=== PATIENT | female | born 1945 | race Caucasian/White ===

== ENCOUNTER → 2016-04-29 | Outpatient (CLI) | payer MEDICARE ==
[~2016-04-29] MED LIST: ACET325T38 PO; ASPI-860 PO; CALC1TAB PO; CHOL100061 PO; CMBV14.7IN INH; CYAN10006 PO; FLC1T PO; FRSM20T PO; GLIP5TAB13 PO; IRON45TA2 PO; LEVO25TA42 PO; LEVO750T39 PO; LORA10TA44 PO; LOSA1TAB19; METF500T4 PO; POTA25TA4 PO; PRAV40TA2 PO; RANI150T15 PO
--- NOTE | 2016-04-29 19:53 | Diagnostic Imaging Report ---
DIGITAL MAMMO RT DIAG W/CAD Comparison: 11/14/2015, 11/01/2015 and 10/23/2015 Indication: Followup right breast calcifications status post stereotactic biopsy Technique: Digital diagnostic mammography of the right breast was obtained with a computer-aided detection (CAD) system. Findings: There are scattered fibroglandular densities in the right breast. The stereotactic biopsy clip is present in the posterior lateral right breast at approximately the 11:00 position. There are no calcifications surrounding the biopsy clip. There are some residual benign-appearing microcalcifications located more centrally within the breast and medial to the biopsy clip. No suspicious microcalcifications. No mass or architectural distortion. Postbiopsy hematoma has resolved. Impression: Decreased number of microcalcifications in the right breast status post stereotactic biopsy. There are some residual microcalcifications within the right breast. These have a benign morphology and are likely benign in nature given the benign pathology report. Recommend return to bilateral annual screening mammogram in 6 months. Dedicated magnification views of these calcifications may be acquired at that time. ACR BI-RADS Category 2: Benign findings. Result letter will be mailed to the patient. Note: At least 10% of breast cancer is not imaged by mammography. Dictated by: Dictated on workstation # [id number]
== END ==
LOC: RAD 12:46
PROVIDERS: ATTEND Internal Medicine
DX: R92.8 Other abnormal and inconclusive findings on diagnostic imaging of breast (principal); R92.0 Mammographic microcalcification found on diagnostic imaging of breast

== ENCOUNTER → 2016-08-05 | Outpatient (CLI) | payer MEDICARE ==
[2016-08-05 08:46] LABS: MEAN CORPUSCULAR HGB CONC 34.5 g/dL (31.0-37.0); MEAN CORPUSCULAR VOLUME 92 FL (80-100); MEAN PLATELET VOLUME 10.2 FL (6.0-9.5); PLATELET COUNT 89 10^3uL (150-450); WHITE BLOOD COUNT 3.99 10^3uL (4.0-11.0)
[2016-08-05 09:00] LABS: MEAN CORPUSCULAR HEMOGLOBIN 31.6 PG (26.0-34.0)
[2016-08-05 09:27] LABS: ALBUMIN 3.3 g/dL (3.4-5.0); ANION GAP 13.6 MEQ/L (3-15); CALCULATED IONIZED CALCIUM 4.2 mg/dL (3.8-4.6)
[2016-08-05 10:12] LABS: BAND NEUTROPHILS % 0 % (0-6); EOSINOPHILS % 5 % (0-4); LYMPHOCYTES # 0.8 #; MONOCYTES # 0.5 #; MONOCYTES % 16 % (3-11); RBC MORPH NORMAL (NORMAL); SEGMENTED NEUTROPHILS % 58 % (51-67); TOTAL CELLS COUNTED 100
== END ==
LOC: LAB 08:27
PROVIDERS: ATTEND Internal Medicine
DX: Z00.00 Encounter for general adult medical examination without abnormal findings (principal); E11.9 Type 2 diabetes mellitus without complications; F32.9 Major depressive disorder, single episode, unspecified; D69.6 Thrombocytopenia, unspecified; I10 Essential (primary) hypertension; F32.89 Other specified depressive episodes; E78.4 Other hyperlipidemia; E03.8 Other specified hypothyroidism
CPT/HCPCS: 36415; 80053; 80061; 82043; 83036; 84443; 85025; 86803